=== PATIENT | female | born 1950 | race Caucasian/White ===

== ENCOUNTER 2016-05-22 00:56 | Emergency (ER) | payer MEDICARE, OTHER ==
[~2016-05-22] VITALS: Ht 170.2 cm; Wt 102.3 kg
[~2016-05-22 00:56] MED LIST: ACET-171 PO; ALBU18HF INH; ALPR1TAB7 PO; CYCL10TA9 PO; DIPH1TAB PO; DIPH50C PO; FLUT12AE8 IH; HYDR-3740 PO; MELA1TAB11 PO; MONT10TA20 PO; MULT-1018 PO; PANT40TA3 PO; PROM25TA14 PO; TRIA10.8 NS; ZOLP10TA5 PO; allergy injections INJ; coq 10; vitamin b12; vitamin c
[2016-05-22 01:11] VITALS: BP 156/94; PULSE 91; RESP 18; O2SAT 99
--- NOTE | 2016-05-22 01:27 | ED.REPORT ---
HPI-General Illness Date of Service May 22, 2016 ED Provider: Dominick Sierra MD 65 year old female with a history of colorectal cancer status post colon resection presents to the ER accompanied by her complaining of several hours of urinary retention. Associated symptom of constipation this evening. Since her colon resection it is typical for her to become unable to urinate when she is constipated, but never to this extent. Severity of symptoms today have caused patient to have a panic attack, per . She also complains of 5 -6 days of scalp pain, secondary to folliculitis per their retired physician friend. Scalp pain treated with hydrocodone and Flexeril around 12:00 yesterday. Nursing Notes Stated Complaint: UNABLE TO URINATE Chief Complaint: General Complaint Nursing Notes Reviewed: Yes Allergies: Coded Allergies: adhesive (Verified Allergy, Severe, 02/06/15) paroxetine HCl (Verified Allergy, Severe, FACE SEWLLING AND SEVERE NAUSEA , 07/15/12) clarithromycin (Verified Allergy, Intermediate, NAUSEA, 07/16/12) Penicillins (Verified Allergy, Unknown, Nausea, 02/02/15) citalopram (Verified Allergy, Unknown, nausea/swelling, 02/02/15) Uncoded Allergies: NSAIDS (Allergy, Unknown, "bernard", 02/02/15) RADIOLOGY CONTRAST DYE- ORAL (Allergy, Unknown, hives, 02/02/15) Scheduled ([vitamin b12]) Unknown Dose DAILY ([coq 10]) Unknown Dose DAILY ([vitamin c]) Unknown Dose DAILY ([allergy injections]) INJ [id number] Diphenhydramine Hcl (Benadryl) 50 Mg Capsule 50 MG PO Q6H Fluticasone Propionate (Flovent HFA 110 mcg) 12 Gm Aer.w.adap 1 PUFF IH BID Melatonin/Pyridoxine (Melatonin 3 mg Tablet) 1 Each Tablet 1 EACH PO HS Montelukast (Singulair) 10 Mg Tablet 10 MG PO HS Multivitamin (Multi Vitamin Daily) 1 Each Tablet 1 EACH PO DAILY Pantoprazole DR (Pantoprazole DR) 40 Mg Tablet.dr 40 MG PO DAILY Triamcinolone Acetonide (Nasacort) 10.8 Ml Maxwell 2 SPRAYS NS BID Scheduled PRN Acetaminophen (Acetaminophen) 500 Mg Tablet 1,000 MG PO Q6H PRN PRN For Fever Albuterol Sulfate (Ventolin HFA Inhaler) 200 Puff/18 Gm Inhaler 2 PUFF INH Q4 PRN PRN For Wheezing Alprazolam (Alprazolam) 1 Mg Tablet 0.5 MG PO TID PRN PRN For Anxiety Cyclobenzaprine (Cyclobenzaprine) 10 Mg Tablet 10 MG PO TID PRN PRN Spasm Diphenoxylate/Atropine 2.5-0.025 mg (Lomotil 2.5-0.025 mg) 1 Each Tablet 2 TABLET PO PRN For Diarrhea or Loose Stool Hydrocodone-Acetaminophen 10-325 mg (Hydrocodone-Acetaminophen 10-325 mg) 1 Each Tablet 0.5-1 TABLET PO Q6H PRN PRN For Pain Promethazine (Promethazine) 25 Mg Tablet 25 MG PO Q6H PRN PRN For Nausea Zolpidem (Zolpidem) 10 Mg Tablet 5 MG PO HS PRN PRN For Insomnia General Time Seen by MD: 01:26 Chief Complaint Other (Urinary Retention) Hx Obtained From: Patient, Spouse Arrived By: Walk-in Sudden in Onset?: No Onset Occurred: 1 - 4 hours ago Symptom Duration: Since onset Additional Notes: Constipation Context Related History: Reports Cancer (Colorectal) Similar Sx Previous: Yes Past Medical History Past Medical History Colorectal cancer Reports: Asthma, GERD Past Surgical History Colon resection Reports: Hysterectomy Reports: Tubal ligation Smoking History Never Smoker Social History Other Social History: Good social support, Ambulatory Status Independent Review of Systems +Scalp pain Full Review of Systems Constitutional: Denies: Chills, Fever GI: Reports: Constipation, Denies: Diarrhea, Nausea, Vomiting Female: Reports: Urination decreased, Denies: Dysuria, Flank pain Complete sys rev & neg: except as marked. Physical Exam Vital Signs Vital Signs Date Time Temp Pulse Resp B/P Pulse Ox O2 Delivery O2 Flow Rate FiO2 05/22/16 01:11 36.5 91 18 156/94 99 Room Air Initial VS: Reviewed Neck: Supple, Non-tender, Full range of motion Abdomen / GI: Soft, Non-tender, No guarding, No rebound, No distention Extremities: Vascular intact, Neuro intact, No swelling, No tenderness Skin: Warm, Dry, No cyanosis Neurologic: Alert, Oriented, Nonfocal General/Constitutional: Awake, Alert, Well developed, Well nourished Behavior: Positive: Anxious Head / Eyes: Normocephalic Healing blisters and scabs on scalp, close to midline. Consistent with shingles. Respiratory / Chest: Breath sounds NL, No respiratory distress, No rales, No rhonchi, No wheezing Cardiovascular: Heart rate NL, Regular rhythm, Heart sounds NL, Cap refill not delayed, Peripheral circulation NL Interpretation & Diagnostics Lab Results Interpretation Test 05/22/16 02:00 Urine Color Straw (YELLOW) Urine Appearance Clear (CLEAR,HAZY) Urine pH 6.0 (5.0-8.0) Urine Specific [place] 1.009 (1.003-1.035) Urine Protein Negativemg/dL (NEG,TRACE) Urine Glucose (UA) Negativemg/dL (NEGATIVE) Urine Ketones Negativemg/dL (NEGATIVE) Urine Occult Blood Negative (NEGATIVE) Urine Nitrite Negative (NEGATIVE) Urine Bilirubin Negative (NEGATIVE) Urine Urobilinogen Normalmg/dL (NORMAL) Urine Leukocyte Esterase Negative (NEGATIVE) Urine RBC 0-2/hpf (0-2) Urine WBC 0-5/hpf (0-5) Urine Epithelial Cells Occasional/hpf (NONE-MOD) Urine Crystals None seen (NONE SEEN) Urine Bacteria None/hpf (NONE-FEW) Urine Hyaline Casts None/lpf (NONE) Urine Granular Casts None seen (NONE SEEN) Urine Waxy Casts None seen (NONE SEEN) Urine Red Blood Cell Casts None seen (NONE SEEN) Urine White Blood Cell Casts None seen (NONE SEEN) Urine Mucus None seen (None Seen) Urine Trichomonas None seen (NONE SEEN) Urine Yeast None (NONE SEEN) Urinalysis Comment None Urine Culture Reflexed Not indicated Hold Urine Received (Received) Re-Eval/Medical Decision Med Decision/Clinical Course 65-year-old with urinary retention, probably induced partly by constipation, but partly by medication side effects, including Flexeril taken for an inappropriate indication. She also took Vicodin. The pain drove that is actually shingles on the top of her head. Use of Flexeril for shingles discouraged. Her constipation is been relieved after a fleets enema. Dennis has now been removed. Urine is unremarkable. Discharged in stable and improved condition with plan for return if unable to urinate subsequently. I expect she will be able to urinate absent anticholinergic side effects and active constipation. Incidental note of a stye on the upper lid of the right eye made. Provided with gentamicin ophthalmic ointment, as she is allergic to clarithromycin and therefore not prescribed erythromycin ointment. Source of Hx: Old records Time of Eval: 02:55 Re-Evaluation/Progress Note: Discussed lab results and plan to discharge. Patient is amenable to the plan. Return precautions given. All other questions addressed. Counseled Regarding: Diagnosis, Lab results, Need for follow-up, When/why to return to ED Discharge & Departure Primary Impression: Urinary retention Additional Impressions: Shingles Stye Constipation Disposition: Home Discharge Condition All VS Reviewed: Yes Condition: Stable Patient Instructions: Acute Urinary Retention in Women (ED), Constipation (DC) , Herpes Zoster (DC), Stye (DC) Additional Instructions: Do not take Flexeril for your shingles pain. Use the Vicodin very sparingly. It can cause constipation. Return if you are unable urinate. Gentamycin ointment three times daily to right eye. Hot soak before each application for ten minutes with a hot washcloth. Follow-up with your doctor in the office. Follow-up for your eye with ophthalmology. Return if any immediate issues Referrals: Tim Hussein (PCP) [facility] Attestation Portions of this note were transcribed by Sahil Valencia. I, Dr. Sierra, personally performed the history, physical exam and medical decision-making; I reviewed and confirmed the accuracy of the information in the transcribed note. Signed by: Linus Neil. 05/22/2016 - 03:17 copies to: Tim Hussein Christopher W MD May 22, 2016 01:27 SAHIL VALENCIA May 22, 2016 01:55
[2016-05-22] MEDS ORDERED: LORazepam 2 mg Tablet PO ONE (02:00)
[2016-05-22] MEDS ORDERED: Sodium Biphos-Phos 133 mL Enema RECTAL ONE (02:00)
[2016-05-22 02:48] LABS: COLOR,URINE STRAW (YELLOW)
[2016-05-22 02:49] LABS: APPEARANCE,URINE CLEAR (CLEAR,HAZY); OCCULT BLOOD,URINE NEGATIVE (NEGATIVE); UROBILINOGEN,URINE NORMAL (NORMAL)
[2016-05-22] MEDS ORDERED: GENTAMICIN 0.3% RIGHT_EYE SCH (08:30)
[2016-06-27] MEDS ORDERED: ALBU2.5V4 INHALATION (16:05)
[2016-06-27] MEDS ORDERED: BUSP7.5T5 PO (16:05)
== END 2016-05-22 03:44 | disposition home or self-care (01) ==
LOC: SED 00:56
DX: R33.9 Retention of urine, unspecified (principal); B02.9 Zoster without complications; H00.011 Hordeolum externum right upper eyelid; K59.00 Constipation, unspecified; K21.9 Gastro-esophageal reflux disease without esophagitis; J45.909 Unspecified asthma, uncomplicated; Z90.710 Acquired absence of both cervix and uterus; Z85.038 Personal history of other malignant neoplasm of large intestine; Z88.0 Allergy status to penicillin; Z88.1 Allergy status to other antibiotic agents; Z88.8 Allergy status to other drugs, medicaments and biological substances

== ENCOUNTER 2016-07-01 09:30 | Day surgery (SDC) | payer OTHER ==
[~2016-07-01] VITALS: Ht 170.2 cm; Wt 97.1 kg
[~2016-07-01 09:30] MED LIST changes: -ACET-171 PO; +ALBU2.5V4 INHALATION; +BUSP7.5T5 PO; -DIPH50C PO; -HYDR-3740 PO; -MULT-1018 PO
[2016-07-01] MEDS ORDERED: Lidocaine PF 1% 30 mL Inj ONE (09:31)
[2016-07-01] MEDS ORDERED: Glycopyrrolate 0.2 MG/ML 1mL Inj ONE (09:31)
[2016-07-01] MEDS ORDERED: Propofol 10,000 mCg/mL 20 mL Inj ONE (09:31)
[2016-07-01 09:46] VITALS: BP 141/99; PULSE 98; RESP 16; O2SAT 97
--- NOTE | 2016-07-01 10:28 | PCM.HPANE ---
Patient Data Date of Service: July 01, 2016 Surgeon Admitting Provider: Attending Provider:Vega Gann MD Primary Care Physician:Tim Hussein Other Provider:Popeye Bowie Anesthesia Reason for Visit Diarrhea, Gastric Polyps Ht/WT & BMI Height (Feet): 5 Height (Inches): 7 Weight (Kilograms): 97.07 Body Mass Index 33.00 Allergies Coded Allergies: adhesive (Verified Allergy, Severe, 02/06/15) paroxetine HCl (Verified Allergy, Severe, FACE SEWLLING AND SEVERE NAUSEA , 07/15/12) clarithromycin (Verified Allergy, Intermediate, NAUSEA, 07/16/12) Penicillins (Verified Allergy, Unknown, Nausea, 02/02/15) citalopram (Verified Allergy, Unknown, nausea/swelling, 02/02/15) Uncoded Allergies: NSAIDS (Allergy, Unknown, "bernard", 02/02/15) RADIOLOGY CONTRAST DYE- ORAL (Allergy, Unknown, hives, 02/02/15) Past Anesthesia History Anesthesia History: Denies:: Abnormal Airway, Anesthesia Reactions, Difficult Intubation, Fam Anesthesia Reaction, Fam Malignant Hypertherm, Malignant Hyperthermia Diabetes History Hx Diabetes?: No MRSA MRSA: No Medications Hypertension Medication: No Home Meds Incl Beta Maddy: No Reported Medications Albuterol Neb Soln 2.5 Mg/3 Ml Vial.neb2.5 Mg INHALATION Q4H PRN For Shortness of Breath Ref 0 06/27/16 Triamcinolone Acetonide (Nasacort)10.8 Ml Spray2 Sprays NS BID 02/06/15 [allergy injections] No Conflict Check INJ [id number] 02/02/15 Zolpidem 10 Mg Tablet5 Mg PO HS PRN For Insomnia Ref 0 02/02/15 [vitamin c] No Conflict CheckUnknown Dose DAILY 02/02/15 Albuterol Sulfate (Ventolin HFA Inhaler)200 Puff/18 Gm Inhaler2 Puff INH Q4 PRN For Wheezing #1 INHALER Ref 0 02/02/15 Montelukast (Singulair)10 Mg [id number] Mg PO HS Ref 0 02/02/15 Promethazine 25 Mg Nqysrd76 Mg PO Q6H PRN For Nausea Ref 0 02/02/[address] 40 Mg Tablet.dr40 Mg PO DAILY Ref 0 02/02/15 Diphenoxylate/Atropine 2.5-0.025 mg (Lomotil 2.5-0.025 mg)1 Each Tablet2 Tablet PO PRN For Diarrhea or Loose Stool 02/02/15 Fluticasone Propionate (Flovent HFA 110 mcg)12 Gm Aer.w.adap1 Puff IH BID #12 GM Ref 0 02/02/15 Cyclobenzaprine 10 Mg Scbbwm32 Mg PO TID PRN Spasm 02/02/15 [vitamin b12] No Conflict CheckUnknown Dose DAILY 02/02/15 Alprazolam 1 Mg Tablet0.5 Mg PO TID PRN For Anxiety Ref 0 02/02/15 Discontinued Reported Medications Buspirone 7.5 Mg Tablet7.5 Mg PO BID Ref 0 06/27/16 Melatonin/Pyridoxine (Melatonin 3 mg Tablet)1 Each Tablet1 Each PO HS 02/02/15 [coq 10] No Conflict CheckUnknown Dose DAILY 02/02/15 Diphenhydramine Hcl (Benadryl)50 Mg [id number] Mg PO Q6H 02/06/15 Acetaminophen 500 Mg Tablet1,000 Mg PO Q6H PRN For Fever 02/06/15 Multivitamin (Multi Vitamin Daily)1 Each Tablet1 Each PO DAILY 30 Days Ref 0 02/02/15 Hydrocodone-Acetaminophen 10-325 mg 1 Each Tablet0.5-1 Tablet PO Q6H PRN For Pain Ref 0 02/02/15 History History of ENT Problems?: Yes HEENT History: Positive for:: Sinus Problem Denies:: Abnormal Airway Cataracts Difficult Intubation Dysphagia Hearing Problem TMJ Denture Type: None Teeth Condition: Within Normal Limits Hx of Heart Problems?: No Cardiovascular History: Positive for:: Irregular Heartbeat (related to anxiety attacks only) Valvular Heart Disease (varicose veins) Denies:: AICD Atrial Fibrillation Chest Pain Congestive Heart Failure Edema Hypertension Pacemaker Hx of Respiratory Problem?: Yes Respiratory History: Positive for:: Asthma Denies:: COPD Cough Hemoptysis Oxygen Administration Pneumonia Tuberculosis Use of C-PAP Machine (sleep study- mild no CPAP recommended) Hx Neurologic Problems?: No Neurological History: Denies:: CVA Dementia Headaches Multiple Sclerosis Parkinson's Disease Seizures Hx of GI Problems?: Yes Hx of Problems?: No Genitourinary History: Denies:: Kidney Stones Urinary Tract Infection Female Hx: Denies:: Currently Problems with Breasts? Skin History: Denies:: History Skin Disorders? Pressure Ulcers Hx Musculoskeletal Problems?: Yes Musculoskeletal History: Positive for:: Back Injury ("permanent" herniated disc ) Joint Replacement (knee) Musculoskeletal Trauma (right knee current problem) Denies:: Fibromyalgia Systemic Lupus Hx of Psycho/Social Problems?: Yes Psycho Social History: Positive for:: Anxiety Denies:: Hx Depression Hx Surgeries?: Yes (colon resection 19yrs ago, knee replacement) Hx Any Other Health Problems?: Yes Other History: Positive for:: Cancer (colon) Denies:: Thyroid Disease History Blood Transfusions: Denies:: Blood Transfusions Hx Diabetes: No Other Pertinent History: hyperparathyroidism numbness in the rectal area Hx Alcohol Use: NoHx Substance Use: No Smoking Status: Never Smoker Have You Smoked inLast 12 mo: No Stop/Bang Treated for Sleep Apnea?: No Do You Have a CPAP Machine?: No S-Snoring: Do You Snore Loudly: No T-Tired: feel tired, fatigued: No O-Obsered: Observed not breath: No P-Blood Pressure: treated: No B- Body Mass Index > 35 kg/m2: No A- Age over 50: Yes N- Neck Large Circumference: No G- Gender Male: No EZ Total Score: 1 EZ Risk Assessment: Low Risk, <3 Yes Risk Assessment Category Category 1A: Patient has history of documented sleep apnea, and HAS NOT received any narcotic, sedative or anesthesia administration during this stay. Category 1B: Patient has history of documented sleep apnea, and HAS received any narcotic , sedative or anesthesia administration during this stay Category 2: Patient has SUSPECTED Obstructive Sleep Apnea, and HAS received any narcotic , sedative or anesthesia administration during this stay. Category 3: Patient has SUSPECTED Obstructive Sleep Apnea and HAS NOT received narcotic, sedative or anesthesia administration during this stay. Category 4: Outpatient in Procedural Areas with known sleep apnea or who screen positive for High Risk via the STOP/BANG questionnaire. Exam Exam Vital Signs Vital Signs Date Time Temp Pulse Resp B/P Pulse Ox O2 Delivery O2 Flow Rate FiO2 07/01/16 09:46 35.9 98 16 141/99 97 Room Air General Appearance: Alert, Oriented X3, Cooperative, No Acute Distress HEENT/AIRWAY: MP 1 Lungs: Clear to Auscultation, Normal Air Movement Heart: Exam Unremarkable, Regular Rate/Rhythm, No Murmurs/Rubs/Gallops Plan Impression Patient chart reviewed, patient interviewed and anesthestic plan with risks, benefits, and alternatives discussed, and informed consent obtained. NPO per Anesth. Guidelines: Yes ASA Physical Status: ASA2 Mod Systemic Disease Anesthetic Plan: TIVA Bene/Risks/Altern/Consents: Yes HP Complete Prior to Induction: Yes Nghia Gaming MD July 01, 2016 10:28
[2016-07-01] MEDS: Lactated Ringer's 1,000 ML IV ONE ×2 (10:37→11:18)
[2016-07-01 11:26] VITALS: BP 105/75; PULSE 79; RESP 14; O2SAT 96
--- NOTE | 2016-07-01 11:48 | ENDO ---
[address] [address] ENDOSCOPY PROCEDURE PATIENT: NADIA GONSALEZ : 1950 MR#: [id number] ADMIT: 07/01/2016 JOB ID: [id number] DATE: 07/01/2016 PROCEDURE: Esophagogastroduodenoscopy with hot snare polypectomy and a colonoscopy with hot snare polypectomy. INDICATIONS: A 65-year-old female with a history of gastric polyposis returning for surveillance. She also reports for colon cancer screening. She has a history of colon cancer and has had a low anterior resection with primary colorectal side-to-end anastomosis. EQUIPMENT: Standard upper endoscope and a pediatric colonoscope. SEDATION: Monitored anesthesia as provided by Dr. Dennis Gaming. COMPLICATIONS: None identified. BOWEL PREPARATION: Fair, adequate examination. PROCEDURE INFORMATION: After the risks and benefits were explained, written and verbal informed consent was obtained. The patient was brought into the endoscopy suite and placed into the left lateral decubitus position. Sedation was achieved using the above-stated medications with the addition of oxygen via nasal cannula. The scope was introduced into the mouth through the bite block, and advanced under direct visualization through the oropharynx, esophagus, stomach, and onto the second portion of the duodenum. The scope was slowly withdrawn to carefully examine the mucosa for any defects or lesions. Retroflexed views were accomplished in the stomach. The stomach was partially decompressed and the polyps were removed by a Vásquez net. The scope was then turned around and a digital rectal examination accomplished. Grade 3 internal external hemorrhoids were present. The scope was then introduced into the rectum and advanced to the cecum as identified by the appendiceal orifice and ileocecal valve. The terminal ileum was briefly accessed. The scope then slowly withdrawn to carefully examine the mucosa for any defects or lesions. Multiple direct views were made through the dentate line for exclusion of pathology. The colon was decompressed. The scope removed from the patient who tolerated the procedure well. FINDINGS: 1. Duodenum: No pathology from the bulb through to the second portion. 2. Stomach: No outlet obstruction. No ulcers. No mass lesions. Retroflexed views disclosed no significant pathology at the LES. The patient once again had diffuse polyposis all through the mid part of the stomach. Some of these polyps were in the neighborhood of about a centimeter or so in size. Three of the larger ones were removed by way of hot snare polypectomy. There were no significant hemorrhagic complications. I did not see any one polyp that was dominant over others or high-risk in appearance. Three polyps we removed/sampled today were ultimately retrieved by way of Vásquez net. 3. Esophagus: The squamocolumnar junction correlated with the top of the gastric folds. No evidence of any acute erosive esophagitis. No stricturing. No mass lesions. 4. Terminal ileum: This appeared visually within normal limits. 5. Colon: In the left colon approximately 13 cm from the anal verge just proximal to the colorectal anastomosis was a polyp perhaps in the neighborhood of about 6-7 mm in size. This was successfully removed with hot snare. The anastomosis was widely patent and the blind loop was interrogated. This was quite short. I did not see any evidence of proctitis nor colitis throughout. ENDOSCOPIC DIAGNOSES: 1. Gastric polyposis. 2. Otherwise visually unremarkable esophagogastroduodenoscopy. 3. Colon polyp. 4. Hemorrhoids. 5. Patent anastomosis. RECOMMENDATIONS: 1. Await histopathology. 2. Repeat colonoscopy in three years if this is confirmed an adenoma. 3. Repeat EGD in 2-3 years with anesthesia for surveillance.
[2016-07-01 11:51] VITALS: BP 135/83; PULSE 83; RESP 16; O2SAT 96
--- NOTE | 2016-07-01 16:18 | PCM.ANEP1 ---
Post Anesthesia Phase 1 PACU Phase 1 Assessment Date of Service: July 01, 2016 Vital Signs Vital Signs Date Time Temp Pulse Resp B/P Pulse Ox O2 Delivery O2 Flow Rate FiO2 07/01/16 11:51 83 16 135/83 96 Room Air 07/01/16 11:26 35.5 79 14 105/75 96 Room Air 07/01/16 09:46 35.9 98 16 141/99 97 Room Air Anesthetic Administered: TIVA Level of Alertness: Awake, talking ZHONG's with Equal Strength: Yes Pain: No Nausea or Vomiting: No Cardiovascular Function and Hy: Yes Oxygen Delivery: Room Air Lungs: Clear to Auscultation, Normal Air Movement Dermatome Level: Full Sensation Complications: No Follow up Care: No Nghia Gaming MD July 01, 2016 16:17
--- NOTE | 2016-07-03 11:09 | PATH ---
SURGICAL PATHOLOGY Attending Physician:Mike Camarena CASE STATUS: Signed Out PATIENT NAME: NADIA GONSALEZ PID: [id number] : 1950 DATE COLLECTED:07/01/2016 20:32 SPECIMEN: 1: Stomach, Polyp, Biopsy 2: Colon, Biopsy CLINICAL HISTORY: 1). GASTRIC POLYPS X3 2). COLON POLYP @ 13CM X1 FINAL DIAGNOSIS: 1.GASTRIC POLYPS: FUNDIC GLAND POLYPS, MULTIPLE FRAGMENTS. 2.COLON POLYP AT 13 CM: TUBULAR ADENOMA. ICD10 CODE K31.7 D12.8 GROSS DESCRIPTION: The specimen is received in two formalin filled containers labeled with the patient's name. 1). The specimen is sublabeled "gastric polyps" and consists of 5 portions of tissue which aggregate to 1.5 x 1.5 x 1.2 CM. The 2 smallest pieces are entirely submitted in cassette 1A. The second piece is trisected and entirely submitted in cassette 1B. The next piece is trisected and entirely submitted in cassette 1C. The last piece is trisected and entirely submitted in cassette 1D. 2). The specimen is sublabeled "colon polyp X1" and consists of a 0.4 x 0.3 x 0.3 CM portion of tissue which is entirely submitted in cassette 2A. 07/01/2016 DAC MICRO DESCRIPTION: See diagnosis. ICD-9 CODES: CPT CODES: 1: 52301 2: 89933 Electronically Signed Out Laurel Castano MD [facility] Pathology [facility] [address], [place] [address] Technical component performed at [facility], [facility] [address], [place], [address]
== END 2016-07-01 23:59 | disposition home or self-care (01) ==
LOC: END 09:30
PROVIDERS: ATTEND Internal Medicine Gastroenterology
DX: Z12.11 Encounter for screening for malignant neoplasm of colon (principal); D12.8 Benign neoplasm of rectum; K64.8 Other hemorrhoids; K64.4 Residual hemorrhoidal skin tags; K31.7 Polyp of stomach and duodenum; K44.9 Diaphragmatic hernia without obstruction or gangrene; K21.9 Gastro-esophageal reflux disease without esophagitis; R19.7 Diarrhea, unspecified; E21.3 Hyperparathyroidism, unspecified; E78.5 Hyperlipidemia, unspecified; F41.9 Anxiety disorder, unspecified; M19.90 Unspecified osteoarthritis, unspecified site; J45.909 Unspecified asthma, uncomplicated; Z96.651 Presence of right artificial knee joint
CPT/HCPCS: 43251; 45385; J2250; J7120